=== PATIENT | female | born 1945 | race American Indian/Alaskan Native ===

== ENCOUNTER 2016-09-28 10:59 | Day surgery (SDC) | payer MEDICARE ==
[2016-04-04 13:13] VITALS: BMI 37.1
[2016-09-28] MEDS ORDERED: Lidocaine 2% Inj (20ml) ONE (11:48)
[2016-09-28] MEDS ORDERED: Midazolam 2 MG/2 ML VIAL ONE ×3 (11:49→13:29)
[2016-09-28 12:35] LABS: BASO # 0.03 K/mm3 (0.0-2.0); BASO % 0.5 % (0.0-3.0); EOS # 0.2 (0.0-0.7); EOS % 4.1 % (1.5-5.0); GRAN # 3.25 (1.4-6.5); GRAN % 57.9 % (50.0-68.0); HEMOGLOBIN 12.6 g/dL (12.0-16.0); LYMPH # 1.7 (1.2-3.4); LYMPH % 29.8 % (22.0-35.0); MEAN CELL VOLUME 87.6 fl (80.0-105.0); MEAN CORPUSCULAR HEMOGLOBIN 28.4 pg (25.0-35.0); MEAN CORPUSCULAR HGB CONC 32.5 g/dl (31.0-37.0); MEAN PLATELET VOLUME 11.2 fl (7.0-11.0); MONO # 0.4 (0.1-0.6); MONO % 7.7 % (1.0-6.0); PLATELET COUNT 206 10^3/uL (120.0-450.0); RBC 4.43 10^6/uL (3.5-6.1); RED CELL DISTRIBUTION WIDTH 15.6 % (11.5-14.5); WHITE BLOOD COUNT 5.6 10^3/ul (4.5-11.0)
[2016-09-28] MEDS ORDERED: Oxycodone/Acetaminophen 5/325 mg Tab PO PRN (14:06)
[2016-09-28] MEDS ORDERED: Sodium Chloride 0.45% 1,000 ML IV SCH (14:15)
--- NOTE | 2016-09-28 14:47 | VASCULAR ---
PROCEDURE: Ultrasound and fluoroscopic l right internal jugular venous access port. CLINICAL HISTORY: Breast carcinoma.Venous port for chemotherapy. PHYSICIAN(S): Daryl Garnett M.D. TECHNIQUE: The relative risks and indications of the procedure were explained to the patient and consent obtained. The patient was placed supine on the arteriogram table and the right neck and chest prepped and draped in the usual sterile fashion. Conscious sedation monitoring was provided throughout the procedure by a nurse. Antibiotics were given prior to the procedure. Under direct ultrasound guidance, the right internal jugular vein was punctured with a micro-puncture set. A 0.035 angled Glidewire was advanced into the IVC. A 4 cm incision was made below the right clavicle and the pocket blunted dissected. A 8 Yoruba single-lumen catheter, 21 cm long, was advanced to the SVC/RA junction. The catheter was trimmed and attached to the port. The port aspirates and injects easily. The port was placed in the pocket and closed in 2 layers. The patient tolerated the procedure well. IMPRESSION: Ultrasound and fluoroscopically placed right internal jugular venous access port.
[2016-09-28 15:02] VITALS: PULSE 68; TEMP 97.9; O2SAT 97
[2016-09-28] MEDS ORDERED: Oxycodone/Acetaminophen 5/325 mg Tab ONE (15:03)
[2016-09-28 15:52] VITALS: BP 166/61; RESP 20
== END 2016-09-28 17:08 | disposition home or self-care (01) ==
LOC: SDSVAS 10:59
PROVIDERS: ATTEND Radiology Vascular & Interventional Radiology
DX: Z45.2 Encounter for adjustment and management of vascular access device (principal); C50.919 Malignant neoplasm of unspecified site of unspecified female breast; I10 Essential (primary) hypertension; K21.9 Gastro-esophageal reflux disease without esophagitis; M19.90 Unspecified osteoarthritis, unspecified site; E78.00 Pure hypercholesterolemia, unspecified; Z96.653 Presence of artificial knee joint, bilateral
CPT/HCPCS: 36415; 36561; 76937; 77001; 85025; 99152; 99153; C1788; J0690; J1644; J2250; J2405; J3010; J7030

== ENCOUNTER 2018-04-18 11:05 | Outpatient (CLI) | payer MEDICARE | END 2018-04-18 11:06 | disposition home or self-care (01) | LOC: RAD 11:05 ==